=== PATIENT | female | born 1950 | race Caucasian/White ===

== ENCOUNTER → 2017-04-23 | Outpatient (CLI) | payer OTHER ==
[~2017-04-23] MED LIST: ACCUPRIL PO; CYMBALTA PO; DEPLIN7.5 MG PO; TESSALON200 MG PO; ZPAK PO
== END ==
LOC: M.RAD 15:02
DX: M19.071 Primary osteoarthritis, right ankle and foot (principal); M19.072 Primary osteoarthritis, left ankle and foot; M77.32 Calcaneal spur, left foot; M77.31 Calcaneal spur, right foot; R68.89 Other general symptoms and signs; M19.042 Primary osteoarthritis, left hand; M19.041 Primary osteoarthritis, right hand; R91.8 Other nonspecific abnormal finding of lung field; Z80.0 Family history of malignant neoplasm of digestive organs

== ENCOUNTER → 2017-05-15 | Outpatient (CLI) | payer OTHER ==
--- NOTE | 2017-05-15 14:13 | 2DMMODE ---
[place] [address] 2 D/M-MODE ECHOCARDIOGRAM Name: XANDER NUÑEZ Room: [facility]#: [id number] Admission: 05/15/17 Attend Phys: Miguel Escalera, Discharge: Date of : 50 Date of Service: 05/15/17 1413 Report #: [id number] THIS REPORT FOR: //name// APPROVED REPORT Study performed: 05/15/2017 08:49:40 EXAM: Comprehensive 2D, Doppler, and color-flow Echocardiogram Patient Location: Out-Patient Status: routine BSA: 1.99 HR: 86 bpm BP: 145/98 mmHg Other Information Study Quality: Good Indications Dyspnea Fatigue Decrease Exercise tolerance 2D Dimensions LVEF(%): 75.11 (>50%) IVSd: 10.08 (7-11mm) LVOT Diam: 20.42 (18-24mm) LVDd: 42.92 mm PWd: 9.40 (7-11mm) Ascending Ao: 28.81 (22-36mm) LVDs: 24.20 (25-40mm) Aortic Root: 26.66 mm Shaw's LVEF: 75.11 % Volumes Left Atrial Volume (Systole) LA ESV Index: 14.00 mL/m2 Aortic Valve AoV Peak Pieter.: 1.52 m/s AO Peak Gr.: 9.26 mmHg LVOT Max P.77 mmHg AO Mean Gr.: 4.85 mmHg LVOT Mean P.54 mmHg LVOT Max V: 1.20 m/s AO V2 VTI: 26.80 cm LVOT Mean V: 0.72 m/s NEPTALI (VTI): 2.91 cm2 LVOT V1 VTI: 23.81 [place] [address] 2 D/M-MODE ECHOCARDIOGRAM Name: XANDER NUÑEZ [id number] Admission: 05/15/17 Attend Phys: Miguel Escalera, Discharge: Date of : 50 Date of Service: 05/15/17 1413 Report #: [id number] E/A Ratio: 0.67 MV Decel. Time: 250.70 ms MV E Max Pieter.: 0.85 m/s MV PHT: 72.70 ms MVA (PHT): 3.03 cm2 TDI E/Lateral E': 10.63 E/Medial E': 7.73 Medial E' Pieter.: 0.11 m/s Lateral E' Pieter.: 0.08 m/s Pulmonary Valve PV Peak Pieter.: 0.97 m/s PV Peak Gr.: 3.73 mmHg Tricuspid Valve TR Peak Gr.: 29.71 mmHg RVSP: 34.71 mmHg Left Ventricle The left ventricle is normal size. There is normal LV segmental wall motion. There is normal left ventricular wall thickness. Left ventricular systolic function is normal. LVEF is 55-60%. Grade I - abnormal relaxation pattern. Right Ventricle The right ventricle is normal size. The right ventricular systolic function is normal. Atria The left atrium size is normal. The right atrium size is normal. Aortic Valve The aortic valve is normal in structure. No aortic regurgitation is present. There is no aortic valvular stenosis. Mitral Valve The mitral valve is normal in structure. Trace mitral regurgitation. No evidence of mitral valve stenosis. Tricuspid Valve The tricuspid valve is normal in structure. Mild tricuspid regurgitation. The RVSP is 35 mmHg. Pulmonic Valve The pulmonary valve is normal in structure. There is no pulmonic [place] [address] 2 D/M-MODE ECHOCARDIOGRAM Name: XANDER NUÑEZ Room: [facility]#: [id number] Admission: 05/15/17 Attend Phys: Miguel Escalera, Discharge: Date of : 50 Date of Service: 05/15/17 1413 Report #: [id number] Great Vessels The aortic root is normal in size. IVC is not well visualized. Pericardium There is no pericardial effusion. <Conclusion> The left ventricle is normal size. There is normal left ventricular wall thickness. Left ventricular systolic function is normal. LVEF is 55-60%. Grade I - abnormal relaxation pattern. Mild tricuspid regurgitation. The RVSP is 35 mmHg. <ELECTRONICALLY SIGNED> By: Smooth Rich MD, FACC 05/15/17 1413 12 141 Smooth Rich MD, FACC /INF
== END ==
LOC: M.CT 05-14 08:30 → M.CRD 08:05
DX: J84.10 Pulmonary fibrosis, unspecified (principal); R91.8 Other nonspecific abnormal finding of lung field; M19.90 Unspecified osteoarthritis, unspecified site; E87.8 Other disorders of electrolyte and fluid balance, not elsewhere classified; R68.89 Other general symptoms and signs; I07.1 Rheumatic tricuspid insufficiency; Z80.0 Family history of malignant neoplasm of digestive organs

== ENCOUNTER → 2017-10-31 | Outpatient (CLI) | payer OTHER, MEDICARE ==
[2017-10-31 11:04] LABS: ABSOLUTE BASOPHILS 0.1 thou/uL (0.0-0.2); ABSOLUTE EOSINOPHILS 0.1 thou/uL (0.0-0.7); ABSOLUTE MONOCYTES 0.8 thou/uL (0.0-1.2); ABSOLUTE NEUTROPHILS 8.9 thou/uL (1.6-8.1); BASOPHILS 0.6 %; EOSINOPHILS 1.2 %; HEMATOCRIT 42.4 % (37.0-47.0); HEMOGLOBIN 14.2 gm/dL (12.0-15.0); LYMPHOCYTES 17.1 %; MCHC 33.5 g/dL (28.0-37.0); MCV 89.7 fL (80.0-100.0); MONOCYTES 6.7 %; MPV 7.6 fl. (7.2-11.1); NUCLEATED RBCS 0 /100WBC; PLATELET COUNT* 319 thou/uL (150-400); POLYS 74.4 %; RBC 4.73 mil/uL (4.20-5.00); RDW-CV 13.9 % (10.5-14.5); WBC 11.9 thou/uL (4.0-11.0)
[2017-10-31 11:16] LABS: CALCIUM 9.1 mg/dL (8.5-10.1); CREATININE 0.8 mg/dL (0.6-1.3); TOTAL BILIRUBIN 0.7 mg/dL (<0.1-1.0); TOTAL PROTEIN 7.5 g/dL (6.4-8.2)
== END ==
LOC: M.LAB 10:30 → M.CT 11:00
PROVIDERS: Internal Medicine
DX: K57.30 Diverticulosis of large intestine without perforation or abscess without bleeding (principal); I70.0 Atherosclerosis of aorta

== ENCOUNTER → 2019-04-09 | Outpatient (CLI) | payer MEDICARE, OTHER | LOC: M.RAD 14:12 | DX: M41.84 Other forms of scoliosis, thoracic region (principal) ==